=== PATIENT | male | born 1990 | race Caucasian/White ===

== ENCOUNTER 2017-02-23 17:50 | Inpatient (IN) | payer MEDICAID, OTHER ==
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
[2017-02-23 18:58] LABS: BASO # 0.1 K/uL (0.0-0.2); BASO % 0.5 % (0.0-2.0); EOS # 0.4 K/uL (0.0-0.7); HEMATOCRIT 40.4 % (35.0-51.0); LYMPH % 15.2 % (20.0-40.0); MEAN CELL VOLUME 85.7 fL (80.0-94.0); MEAN CORPUSCULAR HEMOGLOBIN 29.7 pg (27.0-31.0); MEAN CORPUSCULAR HGB CONC 34.6 g/dL (33.0-37.0); MEAN PLATELET VOLUME 6.9 fL (7.2-11.7); MONO # 0.8 K/uL (0.0-0.8); MONO % 6.1 % (0.0-10.0); NRBC % 0.1 % (0.0-2.0); WHITE BLOOD COUNT 13.2 K/uL (4.8-10.8)
[2017-02-23 19:00] LABS: CHLORIDE 98 mmol/L (98-107); POTASSIUM 3.6 mmol/L (3.6-5.2); SODIUM 137 mmol/L (132-148)
[2017-02-23 19:02] LABS: GFR AFRICAN-AMERICAN > 60
[2017-02-23 19:03] LABS: ALB/GLOB RATIO 1.1 (1.0-2.1); ALKALINE PHOSPHATASE 84 U/L (38-126); ALT/SGPT 44 U/L (21-72); AST/SGOT 53 U/L (17-59); BILIRUBIN,TOTAL 0.6 mg/dL (0.2-1.3); BLOOD UREA NITROGEN 14 mg/dL (9-20); CALCIUM 8.8 mg/dl (8.6-10.4); CARBON DIOXIDE 30 mmol/L (22-30); GLUCOSE,RANDOM 92 mg/dL (75-110); TOTAL PROTEIN 6.5 g/dL (6.3-8.3)
[2017-02-23 19:04] LABS: ALCOHOL SERUM < 10 mg/dl (0-10)
[2017-02-23 19:06] LABS: RBC URINE 31 /hpf (0-3); URINE BACTERIA OCC (<OCC); URINE BILIRUBIN NEGATIVE (NEGATIVE); URINE BLOOD 2+ (NEGATIVE); URINE COLOR Yellow (YELLOW); URINE GLUCOSE (UA) NORMAL (Normal); URINE KETONE NEGATIVE (NEGATIVE); URINE LEUKOCYTE ESTERASE TRACE Leu/uL (Negative); URINE PROTEIN NEGATIVE (NEGATIVE); URINE UROBILINOGEN NORMAL mg/dL (0.2-1.0); WBC URINE 7 /hpf (0-5)
--- NOTE | 2017-02-23 23:34 | PCM.BM ---
<KelDavid - Last Filed: 02/23/17 23:32> Treatment Plan Problems - Problems identified on initial assessmt Delusions Date Initiated: 02/23/17 Time Initiated: 22:20 Assessment reference: NA Status: Active Opiates abuse Date Initiated: 02/23/17 Time Initiated: 22:20 Assessment reference: NA Status: Active Treatment assets and liabiliti Patient Assests: ADL independent, physically healthy, good support system, negotiates basic needs Patient Liabilities: substance abuse (Opiates) - Milieu Protocol Maintain good personal hygiene: daily Encourage regular showers, daily Remind patient to perform daily oral care Maintain personal safety: every shift Educate patient to report safety concerns to staff, every shift Monitor environment for contraband/sharps Medication safety: Monitor for expected outcome, potential side effects: every shift, Assess barriers to learning: every shift, Assess readiness for medication education: every shift <Stacey Schneider - Last Filed: 02/24/17 11:17> Family Contact Family involvement: Famliy/SO not involved - Goals for Treatment Patient goals for treatment: no comment Discharge/Continuing Care - Education Needs Education Needs: Patient Medication, Patient Coping Skills, Patient Placement options, Patient Community resources - Discharge Discharge Criteria: Tolerates medication w/o severe side effects, No longer exhibiting s/s of withdrawal, Reduction of target symptoms Discharge to:: Long Term - Treatment Team Participation Discussed with Family/SO: No Was Patient/Family/SO present at Treatment Team Meeting: Yes <Meron Platt - Last Filed: 02/24/17 11:23> - Diagnosis (1) Schizophrenia Status: Acute Interventions: 02/24/17 11:22 * Assess/adjust medications daily and /or as needed * See patient on an individual basis 7x/week to assess status of hallucinations * Discuss risks, benefits, side effects and alternatives of medications * (2) Opioid use disorder, severe, dependence Status: Acute Interventions: 02/24/17 11:23 * Assess 7x/week regarding severity of withdrawal * Educate regarding risks, benefits, side effects and alternatives of medications * Use Motivational Interviewing for abstinence * Use CBT for relapse prevention * Medication management for withdrawal symptoms * Encourage medication assisted treatment *
--- NOTE | 2017-02-24 10:53 | RAD ---
PROCEDURE: Bilateral hand radiographs. HISTORY: hand pain b/l COMPARISON: None available. FINDINGS: BONES: Right Hand: Evidence of 3 mm chip fracture involving the right proximal phalanx. The remainder of the visualized osseous structures appear intact. Left Hand: No acute displaced fracture identified. JOINTS: Right Hand: No dislocation. Left Hand: No dislocation. SOFT TISSUES: Right Hand: No evidence of radiopaque foreign body. Left Hand: No evidence of radiopaque foreign body. OTHER FINDINGS: None. IMPRESSION: 3 mm chip fracture involving the right proximal phalanx. Correlate clinically. Study has been marked for PA review.
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
[2017-02-24] MEDS: Divalproex 500 mg DR Tab PO SCH ×2 (11:35→19:26)
[2017-02-25] MEDS: Divalproex 500 mg DR Tab PO SCH ×2 (09:55→17:05)
[2017-02-25 19:29] VITALS: O2SAT 96
[2017-02-26 07:45] VITALS: BP 117/81; PULSE 80; RESP 19; TEMP 98.1
[2017-02-26] MEDS: Divalproex 500 mg DR Tab PO SCH (09:43)
--- NOTE | 2017-02-26 10:50 | PCM.PYCHPN ---
Psychiatric Progress Note - Psychiatric Progress Note Patient seen today, length of contact: 16 min Patient Chief Complaint: I'm feeling depressed Problems Identified/Issues Discussed: Patient seen and evaluated, chart reviewed and discussed with the nurse. Patient remained disorganized and internally preoccupied. Patient remained isolated, confined and withdrawn. He still reports of hearing voices. Patient still appears paranoid and delusional. He reports depressed mood and feelings of hopelessness and helplessness. He reports somewhat improvement in the withdrawal symptoms but still reports cramps, sweating, and anxiety. But remained isolated and withdrawn, denies any suicidal ideation or homicidal ideation. He is taking medication and denies any side effects. Supportive therapy and psychoeducation were given. Medication Change: Yes (Increase Depakote, start Klonopin) Medical Record Reviewed: Yes Mental Status Examination - Cognitive Function Orientation: Person, Place, Situation, Time Memory: Intact Attention: Poor Concentration: Poor Association: Loose Fund of Knowledge: Poor - Mood Mood: Anxious - Affect Affect: Broad - Speech Speech: Pressured - Formal Thought Process Formal Thought Process: Hallucinations, Delusions, Paranoia, Flight of ideas, Circumstantial - Suicidal Ideation Suicidal Ideation: No - Homicidal Ideation Homicidal Ideation: No Goal/Treatment Plan - Goal/Treatment Plan Need for Continued Stay: Severe depression anxiety, Severe functional impairment Progress Toward Problem(s) and Goals/Treatment Plan: Schizoaffective disorder bipolar type CBT Psychoeducation Supportive therapy, group therapy, individual therapy Haldol 5 mg by mouth twice a day Increase Depakote 500 mg by mouth 2 times a day Trazodone 50 mg by mouth daily at bedtime Start Klonopin 1 mg by mouth twice a day Opioid use disorder severe CBT Psychoeducation Supportive therapy, individual therapy Use [place] for abstinence Opioid withdrawal CBT Psychoeducation Supportive therapy, individual therapy Clonidine when necessary Methadone taper Cocaine use disorder severe CBT Psychoeducation Supportive therapy, individual therapy Use [place] for abstinence Cannabis use disorder severe CBT Psychoeducation Supportive therapy, individual therapy Use UT for abstinence Hand injury Follow-up x-ray - Smoking Cessation Smoking Cessation Initiated: No
--- NOTE | 2017-02-26 10:50 | PCM.PYCHPN ---
Mental Status Examination - Homicidal Ideation Homicidal Ideation: No
[2017-02-26] MEDS ORDERED: Haloperidol Decanoate 100 mg/ml Inj IM ONE (11:26)
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
[2017-02-26] MEDS ORDERED: Tmp-Smz 800 mg-160 mg DS Tab PO SCH (13:15)
== END 2017-02-26 13:25 | disposition left against medical advice (07) | DRG 430 ==
LOC: C.ER 17:50 → C.9E 21:10 → C.5E 21:45
PROVIDERS: ADMIT Psychiatry & Neurology Psychiatry; ATTEND Psychiatry & Neurology Psychiatry
DX: F25.0 Schizoaffective disorder, bipolar type (principal); F22 Delusional disorders; F11.23 Opioid dependence with withdrawal; F14.90 Cocaine use, unspecified, uncomplicated; F12.90 Cannabis use, unspecified, uncomplicated; F41.9 Anxiety disorder, unspecified; Z87.891 Personal history of nicotine dependence; F19.10 Other psychoactive substance abuse, uncomplicated

== ENCOUNTER 2017-03-08 12:12 | Emergency (ER) | payer OTHER ==
[2017-03-08 12:28] VITALS: RESP 16
--- NOTE | 2017-03-08 12:36 | C.PDOC ---
History Of Present Illness 26M c/o hearing voices telling him to hurt himself- to "hang myself" and "jump off a bridge" since last night. he was recently admitted for similar but signed out ama. reports crack and heroin use but says he hasn't used in 2 days- is trying to "get clean." he is non-compliant with his medications. Time Seen by Provider: 03/08/17 12:32 Chief Complaint (Nursing): Psychiatric Evaluation History Per: Patient History/Exam Limitations: no limitations Onset/Duration Of Symptoms: Persistent Past Medical History Reviewed: Historical Data, Nursing Documentation, Vital Signs Vital Signs: Last Vital Signs Temp 98.4 F 03/08/17 15:28 Pulse 82 03/08/17 15:28 Resp 16 03/08/17 15:28 BP 130/75 03/08/17 15:28 Pulse Ox 96 03/08/17 15:28 - Medical History PMH: Anxiety, Bipolar Disorder, Depression, Schizophrenia - [facility] Procedures GROUP VELVET CUTTER FOR SUBSTANCE ABUSE TREATMENT, PSYCHOEDUCATION (12/07/15) INDIVIDUAL PSYCHOTHERAPY, SUPPORTIVE (01/17/16) Family History: States: No Known Family Hx Other Family History: non-contributory - Social History Hx Tobacco Use: No Hx Alcohol Use: No (social) Hx Substance Use: Yes (CLEAN FOR 2 DAYS) - Immunization History Hx Tetanus Toxoid Vaccination: No Hx Influenza Vaccination: No Hx Pneumococcal Vaccination: No Review Of Systems Except As Marked, All Systems Reviewed And Found Negative. Constitutional: Negative for: Fever, Chills Cardiovascular: Negative for: Chest Pain Respiratory: Negative for: Shortness of Breath Gastrointestinal: Negative for: Vomiting Neurological: Negative for: Weakness, Numbness, Headache Psych: Positive for: Psychosis, Suicidal ideation Physical Exam - Physical Exam Appears: Non-toxic, No Acute Distress Skin: Warm, Dry Head: Atraumatic Eye(s): bilateral: PERRL Nose: No Epistaxis Oral Mucosa: Moist Cardiovascular: Rhythm Regular Respiratory: No Decreased Breath Sounds, No Accessory Muscle Use Gastrointestinal/Abdominal: Soft, No Tenderness Neurological/Psych: Oriented x3, Other (no focal deficits) ED Course And Treatment - Laboratory Results Result Diagrams: 03/08/17 12:49 03/08/17 12:49 O2 Sat by Pulse Oximetry: 99 (RA) Pulse Ox Interpretation: Normal Medical Decision Making Medical Decision Making: psych evaluated the pt and cleared for dc. rec rx risperdal 2mg daily x7 days and outpt follow up. per supervisor hand workers Jenni Marin is familiar with this patient and is comfortable discharging him and will place a note in the chart- please see Dr Marin's note for further details. Disposition - Disposition Referrals: [facility] [Outside] [facility] [Outside] [facility] [Outside] Disposition: HOME/ ROUTINE Disposition Time: 15:14 Condition: STABLE Additional Instructions: Please follow up with resources provided by psychiatry. Return to the ER for any worsening symptoms or for any other concerns. Prescriptions: Risperidone [Risperdal] 2 mg PO DAILY #7 tablet Forms: General Discharge Instructions, [employer] (Korean) - Clinical Impression Clinical Impression: Schizophrenia
[2017-03-08 12:56] LABS: RBC URINE < 1 /hpf (0-3); URINE BILIRUBIN NEGATIVE (NEGATIVE); URINE BLOOD NEGATIVE (NEGATIVE); URINE COLOR Yellow (YELLOW); URINE GLUCOSE (UA) NORMAL (Normal); URINE KETONE NEGATIVE (NEGATIVE); URINE LEUKOCYTE ESTERASE NEG Leu/uL (Negative); URINE PROTEIN NEGATIVE (NEGATIVE); URINE UROBILINOGEN NORMAL mg/dL (0.2-1.0); WBC URINE 1 /hpf (0-5)
[2017-03-08 12:59] LABS: BASO # 0.1 K/uL (0.0-0.2); BASO % 0.6 % (0.0-2.0); EOS # 0.1 K/uL (0.0-0.7); EOS % 1.2 % (0.0-4.0); HEMATOCRIT 46.4 % (35.0-51.0); LYMPH # 1.8 K/uL (1.0-4.3); LYMPH % 15.5 % (20.0-40.0); MEAN CELL VOLUME 86.6 fL (80.0-94.0); MEAN CORPUSCULAR HEMOGLOBIN 29.4 pg (27.0-31.0); MEAN CORPUSCULAR HGB CONC 33.9 g/dL (33.0-37.0); MEAN PLATELET VOLUME 6.9 fL (7.2-11.7); MONO # 0.5 K/uL (0.0-0.8); MONO % 4.1 % (0.0-10.0); WHITE BLOOD COUNT 11.8 K/uL (4.8-10.8)
[2017-03-08 13:02] LABS: CHLORIDE 103 mmol/L (98-107); POTASSIUM 4.1 mmol/L (3.6-5.2); SODIUM 140 mmol/L (132-148)
[2017-03-08 13:04] LABS: AST/SGOT 18 U/L (17-59); BILIRUBIN,TOTAL 0.7 mg/dL (0.2-1.3); CARBON DIOXIDE 24 mmol/L (22-30); GFR AFRICAN-AMERICAN > 60
[2017-03-08 13:05] LABS: ALB/GLOB RATIO 1.4 (1.0-2.1); ALKALINE PHOSPHATASE 78 U/L (38-126); ALT/SGPT 31 U/L (21-72); BLOOD UREA NITROGEN 15 mg/dL (9-20); CALCIUM 9.5 mg/dl (8.6-10.4); GLUCOSE,RANDOM 82 mg/dL (75-110); TOTAL PROTEIN 7.7 g/dL (6.3-8.3)
[2017-03-08 13:06] LABS: ALCOHOL SERUM < 10 mg/dl (0-10)
[2017-03-08 15:28] VITALS: BP 130/75; PULSE 82; TEMP 98.4
--- NOTE | 2017-03-11 17:25 | CARD ---
APPROVED REPORT EKG Measurement Heart [id number] <Conclusion> Normal sinus rhythm Normal ECG
[2017-03-11 18:47] VITALS: O2SAT 99
== END 2017-03-08 15:37 | disposition home or self-care (01) ==
LOC: C.ER 12:12
DX: F20.9 Schizophrenia, unspecified (principal)